=== PATIENT | male | born 1995 | race Caucasian/White ===

== ENCOUNTER 2019-11-30 14:30 | Inpatient (IN) | payer MEDICAID ==
[~2019-11-30] VITALS: Ht 180.3 cm; Wt 91.6 kg
[~2019-11-30 14:30] MED LIST: DIAZ2TAB3 PO; TRAM50TA2 PO
[2019-11-30] MEDS ORDERED: POLYETHYLENE GLYCOL 17 GM PACKET PO PRN (15:00)
[2019-11-30] MEDS ORDERED: BISACODYL 10 MG SUPP PR PRN (15:00)
[2019-11-30] MEDS ORDERED: DOCUSATE 100 MG CAPSULE PO PRN (15:00)
[2019-11-30] MEDS ORDERED: ACETAMINOPHEN 325 MG TABLET PO PRN (15:00)
[2019-11-30] MEDS ORDERED: ONDANSETRON ODT 4 MG PO PRN (15:00)
[2019-11-30 17:52] VITALS: BP 133/88
[2019-11-30] MEDS ORDERED: PLEASE ENTER HEIGHT AND WEIGHT MC SCH (18:30)
[2019-11-30] MEDS ORDERED: NICOTINE 14MG/24 HR PATCH.TD24 TD SCH (18:30)
[2019-12-01 06:17] LABS: BASOPHILS # (AUTO) 0.04 x10^3/uL (0-0.1); BASOPHILS % (AUTO) 1 % (0-1); EOSINOPHILS # (AUTO) 0.08 x10^3/uL (0-0.4); EOSINOPHILS % (AUTO) 1 % (1-7); LYMPHOCYTES # (AUTO) 2.69 x10^3/uL (1-3.4); LYMPHOCYTES % (AUTO) 37 % (22-44); MD NO; MEAN CORPUSCULAR HEMOGLOBIN 32.6 pg (27.5-34.5); MEAN CORPUSCULAR HGB CONC 33.1 g/dL (33.2-36.2); MEAN PLATELET VOLUME 8.6 fL (7.4-10.4); MONOCYTES # (AUTO) 0.57 x10^3/uL (0.2-0.8); MONOCYTES % (AUTO) 8 % (2-9); NEUTROPHILS # (AUTO) 3.88 x10^3/uL (1.8-6.8); NEUTROPHILS % (AUTO) 53 % (42-75); PLATELET COUNT 202 x10^3/uL (130-400)
[2019-12-01 06:25] LABS: ALANINE AMINOTRANSFERASE 67 U/L (12-78); ALBUMIN 3.4 g/dL (3.4-5.0); ANION GAP 6 mmol/L (5-15); CALCIUM 8.7 mg/dL (8.5-10.1); CHLORIDE 107 mmol/L (98-107)
[2019-12-01 06:34] LABS: ALKALINE PHOSPHATASE 99 U/L (45-117); BILIRUBIN,TOTAL 0.6 mg/dL (0.2-1.0); CHOL/HDL RATIO 3.7; CHOLESTEROL, TOTAL 141 mg/dL (140-239); CREATININE 1.17 mg/dL (0.7-1.3); FREE T4 (FREE THYROXINE) 1.25 ng/dL (0.76-1.46); HDL CHOL % 27 % (26-37); HDL CHOLESTEROL (DIRECT) 38 mg/dL (40-60); LDL CHOLESTEROL,CALCULATED 77 mg/dL (54-169); TOTAL PROTEIN 6.9 g/dL (6.4-8.2); TRIGLYCERIDES 128 mg/dL (50-200); VLDL CHOLESTEROL 26 mg/dL (0-25)
[2019-12-01 07:01] VITALS: BP 112/70
[2019-12-01] MEDS: NICOTINE 14MG/24 HR PATCH.TD24 TD SCH (09:00)
[2019-12-01] MEDS ORDERED: NICOTINE 21 MG/24 HR PATCH.TD24 TD SCH (09:00)
[2019-12-01 20:30] VITALS: BP 112/71
[2019-12-01] MEDS: MELATONIN 5 MG TABLET PO SCH (20:30)
[2019-12-02 07:27] VITALS: BP 121/78
[2019-12-02] MEDS: NICOTINE 14MG/24 HR PATCH.TD24 TD SCH (09:07)
[2019-12-02] MEDS: DULOXETINE 30 MG CAPSULE.DR PO SCH (09:07)
[2019-12-02 20:22] VITALS: BP 116/77
[2019-12-02] MEDS: MELATONIN 5 MG TABLET PO SCH (21:00)
[2019-12-03 07:45] VITALS: BP 121/67
[2019-12-03] MEDS: DULOXETINE 30 MG CAPSULE.DR PO SCH (09:13)
[2019-12-03] MEDS: NICOTINE 14MG/24 HR PATCH.TD24 TD SCH (09:15)
[2019-12-03 12:10] LABS: MICROSCOPIC NOT IND
[2019-12-03 12:24] LABS: AMPHETAMINE SCREEN, URINE Negative (Negative); BARBITURATE SCREEN, URINE Negative (Negative); BENZODIAZEPINE SCREEN, URINE Negative (Negative); CANNABINOID SCREEN, URINE Negative (Negative); COCAINE SCREEN, URINE Negative (Negative); METHADONE SCREEN, URINE Negative (Negative); OPIATE SCREEN, URINE Negative (Negative)
[2019-12-03 20:32] VITALS: BP 115/75
[2019-12-03] MEDS: MELATONIN 5 MG TABLET PO SCH (20:46)
[2019-12-04 07:31] VITALS: BP 128/79
[2019-12-04] MEDS: NICOTINE 14MG/24 HR PATCH.TD24 TD SCH (08:34)
[2019-12-04] MEDS: DULOXETINE 30 MG CAPSULE.DR PO SCH (08:34)
[2019-12-04] MEDS: NALTREXONE HCL 50 MG TABLET PO SCH (12:09)
[2019-12-04 20:16] VITALS: BP 125/85
[2019-12-04] MEDS: MELATONIN 5 MG TABLET PO SCH (21:00)
[2019-12-05 07:33] VITALS: BP 117/76
[2019-12-05] MEDS: NICOTINE 14MG/24 HR PATCH.TD24 TD SCH (09:02)
[2019-12-05] MEDS: DULOXETINE 30 MG CAPSULE.DR PO SCH (09:02)
[2019-12-05] MEDS: NALTREXONE HCL 50 MG TABLET PO SCH (09:02)
[2019-12-05] MEDS ORDERED: NALT50TA PO (15:19)
[2019-12-05] MEDS ORDERED: NICO-486 TD (15:19)
[2019-12-05] MEDS ORDERED: MELA5TAB14 PO (15:19)
[2019-12-05] MEDS ORDERED: DULO30CA2 PO (15:19)
[2019-12-05 20:03] VITALS: BP 129/84
[2019-12-05] MEDS: MELATONIN 5 MG TABLET PO SCH (20:40)
[2019-12-06 07:15] VITALS: BP 113/71
[2019-12-06] MEDS: NALTREXONE HCL 50 MG TABLET PO SCH (07:30)
[2019-12-06] MEDS: DULOXETINE 30 MG CAPSULE.DR PO SCH (07:30)
[2019-12-06] MEDS: NICOTINE 14MG/24 HR PATCH.TD24 TD SCH (07:31)
== END 2019-12-06 09:15 | disposition home or self-care (01) | DRG 885 ==
LOC: 3E 17:20
PROVIDERS: ADMIT Psychiatry & Neurology Psychosomatic Medicine; ATTEND Psychiatry & Neurology Psychosomatic Medicine
DX: F33.2 Major depressive disorder, recurrent severe without psychotic features (principal); F41.1 Generalized anxiety disorder; F19.10 Other psychoactive substance abuse, uncomplicated; Z82.49 Family history of ischemic heart disease and other diseases of the circulatory system; Z88.0 Allergy status to penicillin; Z72.0 Tobacco use; Z72.89 Other problems related to lifestyle
CPT/HCPCS: 36415; 71045; 80053; 80061; 80307; 81003; 84439; 84443; 85025; 86803; 87806; 93005; G0475

== ENCOUNTER 2020-02-20 19:35 | Emergency (ER) | payer MEDICAID ==
[~2020-02-20] VITALS: Ht 180.3 cm; Wt 96.8 kg
[~2020-02-20 19:35] MED LIST changes: +DULO30CA2 PO; +MELA5TAB14 PO; +NALT50TA PO; +NICO-486 TD
[2020-02-20 19:36] VITALS: BP 132/72
[2020-02-20] MEDS ORDERED: DIVA125T31 PO (19:55)
== END 2020-02-20 20:07 | disposition home or self-care (01) ==
LOC: ED 20:01
DX: F32.9 Major depressive disorder, single episode, unspecified (principal); F41.1 Generalized anxiety disorder; Z76.0 Encounter for issue of repeat prescription
CPT/HCPCS: 99281